=== PATIENT | female | born 1975 | race Caucasian/White ===

== ENCOUNTER 2018-03-25 02:47 | Emergency (ER) | payer OTHER ==
[~2018-03-25] VITALS: Ht 162.6 cm; Wt 74.8 kg
[2018-03-25 02:56] VITALS: BP 139/92
== END 2018-03-25 03:11 | disposition home or self-care (01) ==
LOC: ER 02:47
DX: J06.9 Acute upper respiratory infection, unspecified (principal); F17.200 Nicotine dependence, unspecified, uncomplicated
CPT/HCPCS: Z7502

== ENCOUNTER 2019-12-28 17:54 | Emergency (ER) | payer OTHER ==
[~2019-12-28] VITALS: Ht 160 cm; Wt 77.1 kg
[2019-12-28 18:10] VITALS: BP 142/90
[2019-12-28] MEDS ORDERED: ONDANSETRON HCL/PF 4 MG/2 ML VIAL IV ONE (18:30)
[2019-12-28] MEDS ORDERED: HYDROMORPHONE 1 MG/1 ML DISP.SYRIN IV ONE (18:30)
[2019-12-28] MEDS ORDERED: LORAZEPAM INJ 2 MG/ML VIAL IV ONE (18:30)
== END 2019-12-28 19:42 | disposition home or self-care (01) ==
LOC: ER 18:06
DX: J06.9 Acute upper respiratory infection, unspecified (principal); R09.81 Nasal congestion; Z20.828 Contact with and (suspected) exposure to other viral communicable diseases; R03.0 Elevated blood-pressure reading, without diagnosis of hypertension; Z98.890 Other specified postprocedural states; Z72.0 Tobacco use
CPT/HCPCS: 99283; U0003; C9803